=== PATIENT | male | born 1950 | race Caucasian/White ===

== ENCOUNTER 2023-08-12 20:00 | Outpatient (CLI) | payer MEDICARE, OTHER, SELFPAY | END 2023-08-12 20:01 | disposition home or self-care (01) | LOC: SLEEP 08-13 06:12 | PROVIDERS: Visit Provider Nurse Practitioner Family | DX: G47.33 Obstructive sleep apnea (adult) (pediatric) (principal); R09.02 Hypoxemia | CPT/HCPCS: 95810 ==